=== PATIENT | male | born 1980 | race Caucasian/White ===

== ENCOUNTER → 2016-06-06 | Outpatient (CLI) | payer OTHER ==
--- NOTE | 2016-06-06 16:14 | CT ---
EXAMINATION TYPE: CT brain wo/w con DATE OF EXAM: 06/06/2016 4:10 PM COMPARISON: NONE HISTORY: 35-year-old male with headaches. TECHNIQUE: Examination was done in axial plane without and with intravenous contrast. 100 mL Omnipa que 300 IV contrast was administered. Coronal and sagittal reconstructions performed. CT DLP: 2077 mGycm Automated exposure control for dose reduction was used. FINDINGS: There is no evidence of acute intracranial hemorrhage, acute ischemic changes, mass, mass-effect, or extra-axial fluid collection. There is no effacement of cerebral sulci or basal subarachnoid cister ns. There is no hydrocephalus. There is no midline shift. Angelo-white matter distinction is preserv ed. On the postcontrast sequence, dural venous sinuses appear patent. No enhancing intracranial lesions a re identified. There is moderate mucosal thickening within the left maxillary sinus and partial opacification within inferior left mastoid air cells. IMPRESSION: 1. No acute intracranial abnormality seen. 2. No abnormal intracranial enhancement. 3. Moderate chronic left maxillary sinus disease. 4. Also, there is some retained secretions within the inferior left mastoid air cells. Correlate for any mastoid pain that would suggest mastoiditis.
== END ==
LOC: RADCTMAIN 15:36
PROVIDERS: ATTEND Physician Assistant Medical
DX: R51 Headache (principal)
CPT/HCPCS: 70470; Q9967